=== PATIENT | male | born 1930 | race Caucasian/White ===

== ENCOUNTER → 2016-08-28 | Outpatient (CLI) | payer OTHER ==
[~2016-08-28] MED LIST: ACET300T2 PO; ASPI-435 PO; AVD5 PO; CLOP1TAB15 PO; CRG625 PO; DOXY100C2 PO; FLAX100025 PO; LPT/20 PO; LSN5 PO; LSX20 PO; MBC75 PO; MELO15TA4 PO; METR0.7536 TOP; METR1GEL3 TOP; MULT-506 PO; MULT-845 PO; NAPR500T3 PO; NITR0.1S PO; NITR0.4D6 SL; OMEG120013 PO; OPTIRAY 320 IV PRN; POLY335015 PO; POLY335019 PO; ROPI1TAB PO; RPF/8 PO; SIMV20TA2 PO
[2016-08-28 13:26] LABS: BLOOD UREA NITROGEN 13 mg/dl (7-18); BUN/CREATININE RATIO 15.3 (10-20); CREATININE 0.86 mg/dl (0.60-1.40)
--- NOTE | 2016-08-28 14:17 | DIAGNOSTIC IMAGING REPORT ---
ABDOMEN AND PELVIS CT EXAMINATION PRE AND POST INTRAVENOUS CONTRAST CT DOSE: 2885.33 mGycm HISTORY: Hematuria R31.0 Gross hematuria NPR PER JULIUS @ [facility] - REF#[id number] X0 TECHNIQUE: Multiaxial CT images of the abdomen and pelvis were performed pre and post intravenous contrast enhancement. COMPARISON STUDY: 12/21/2013 FINDINGS: Lung bases are clear. Liver spleen and pancreas are unremarkable. No evidence for abnormal renal calcifications. Kidneys enhance uniformly. There are no space-occupying lesions. Upper collecting systems are unremarkable. Ureters normal in course and caliber. There are findings of chronic sigmoid and descending colonic diverticulosis. 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 There is mild wall thickening of the base of the bladder. This is similar to that noted previously. There there are several prosthetic calcifications. There is no significant abdominal pelvic or inguinal adenopathy. IMPRESSION: 1. Normal upper urinary tracts. 2. Bladder diverticulum unchanged in the prior study. 3. Mild wall thickening base of the bladder similar to the prior study with cystoscopy recommended if that has not been performed. 4. Remainder the study remains unremarkable. 5. Chronic sigmoid diverticulosis. Electronically signed by: Ferdinand Hobson M.D. 08/28/2016 2:16 PM Dictated Date/Time: 08/28/2016 2:09 PM
== END ==
LOC: C.CTS 12:19
PROVIDERS: ATTEND Nurse Practitioner Family
DX: R31.0 Gross hematuria (principal)

== ENCOUNTER 2016-09-14 23:42 | Emergency (ER) | payer OTHER ==
[~2016-09-14] VITALS: Ht 177.8 cm; Wt 89.0 kg
[~2016-09-14 23:42] MED LIST changes: -LPT/20 PO; -MELO15TA4 PO; -METR0.7536 TOP; -MULT-845 PO; -NAPR500T3 PO; -NITR0.1S PO; -OPTIRAY 320 IV PRN; -POLY335019 PO
[2016-09-14 23:53] VITALS: TEMP 36.5; Ht 177.8 cm; Wt 89.0 kg
--- NOTE | 2016-09-15 00:27 | EMERGENCY ROOM VISIT NOTE ---
History Report prepared by Robyn: Gunner Feldman Under the Supervision of: Dr. Sanket Edmondson D.O. First contact with patient: 00:12 Chief Complaint: URINARY SYMPTOMS Stated Complaint: BLOOD IN URINE History of Present Illness The patient is an 85 year old male who presents to the Emergency Room with complaints of urinary retention and hematuria that began on the of this month, three days prior to arrival. The patient was diagnosed with urinary retention and bladder infection last week and hat a catheter placed. His catheter was removed on the and he has been having difficulties since. He has been able to urinate this evening, but has mainly passed blood and blood clots. The patient commonly follows with Dr. Markham of urology, but recently visited with Dr. Tee due to Dr. Markham's absence. He was in the ER on the , when the catheter was removed, and had a CT, urine analysis, and blood work performed. Source of History: patient, family Onset: Three days [employer] Position: other (Genitourinary) Quality: other (Urinary Retention) Associated Symptoms: + urinary symptoms Note: Positive hematuria Review of Systems See HPI for pertinent positives and negatives. A total of ten systems were reviewed and were otherwise negative. Past Medical & Surgical Medical Problems: (1) Bladder infection (2) Disc herniation Family History Family history omitted secondary to age. Social History Smoking Status: Never Smoker Alcohol Use: none Drug Use: none Marital Status: Housing Status: lives with family Occupation Status: retired Current/Historical Medications Scheduled Aspirin (Aspirin 81), 81 MG PO DAILY Atorvastatin (Atorvastatin Calcium), 20 MG PO DAILY Carvedilol (Carvedilol), 6.25 MG PO BID Doxycycline Hyclate (Vibramycin), 100 MG PO BID Dutasteride (Avodart), 1 CAP PO DAILY Flaxseed (Linseed) (Flax Seed Oil), 1,200 MG PO DAILY Furosemide (Furosemide), 20 MG PO DAILY Lisinopril (Lisinopril), 5 MG PO DAILY Meloxicam (Meloxicam), 15 MG PO DAILY Multiple Vitamins W/ Minerals (Centrum Silver Adult 50+), 1 TAB PO DAILY [place]-3 Fatty Acids (Fish Oil), 1 CAP PO DAILY Polyethylene Glycol 3350 (Miralax), 17 GM PO DAILY Ropinirole (Requip), 1 MG PO HS Silodosin (Rapaflo), 1 CAP PO DAILY Scheduled PRN Metronidazole (Topical) (Metronidazole), 1 APPLN TOP UD PRN for ROSACIA Naproxen (Naproxen), 500 MG PO BID PRN for Pain Nitroglycerin (Nitroglycerin Lingual), 1 DOSE PO UD PRN for Chest Pain Allergies Coded Allergies: Sulfa Antibiotics (Verified Allergy, Unknown, rash, 09/15/16) Physical Exam Vital Signs Date Time Temp Pulse Resp B/P (MAP) Pulse Ox O2 Delivery O2 Flow Rate FiO2 09/15/16 01:25 57 18 117/58 97 Room Air 09/14/16 23:53 36.5 61 18 107/58 94 Room Air Physical Exam GENERAL: Awake, alert, well-appearing, in no distress HENT: Normocephalic, atraumatic. Oropharynx unremarkable. EYES: Normal conjunctiva. Sclera non-icteric. NECK: Supple. No nuchal rigidity. FROM. No JVD. RESPIRATORY: Clear to auscultation. CARDIAC: Regular rate, normal rhythm. Extremities warm and well perfused. Pulses equal. ABDOMEN: Soft, non-distended. No tenderness to palpation. No rebound or guarding. No masses. RECTAL: Deferred. MUSCULOSKELETAL: Chest examination reveals no tenderness. The back is symmetrical on inspection without obvious abnormality. There is no CVA tenderness to palpation. No joint edema. LOWER EXTREMITIES: Calves are equal size bilaterally and non-tender. No edema. No discoloration. NEURO: Normal sensorium. No sensory or motor deficits noted. SKIN: No rash or jaundice noted. Medical Decision & Procedures Laboratory Results Test 09/15/16 00:32 Urine Color RED Urine Appearance TURBID (CLEAR) Urine pH (4.5-7.5) Urine Specific [place] 1.021 (1.000-1.030) Urine Protein POS (NEG) Urine Glucose (UA) (NEG) Urine Ketones (NEG) Urine Occult Blood (NEG) Urine Nitrite (NEG) Urine Bilirubin (NEG) Urine Urobilinogen (NEG) Urine Leukocyte Esterase (NEG) Urine RBC >30 /hpf (0-4) Urine WBC >30 /hpf (0-5) Urine Epithelial Cells 5-10 /lpf (0-5) Urine Bacteria NEG (NEG) Laboratory results reviewed by ok ED Course 0013: The patient was evaluated in room C6. A complete history and physical exam was performed. 0103: I checked on the patient at this time. His bladder irrigation is looking good. 0146: I reevaluated the patient at this time. Continuous bladder irrigation was performed. The patient had a pink tinged urine after irrigation. He is much improved. The patient will be discharged home. Medical Decision Blood pressure screening: Patient was found to have normal blood pressure on screening and does not require follow-up. Medication Reconciliation: I attest that I have personally reviewed the patient' s current medication list. Differential diagnosis include: Urinary retention, hematuria, UTI. Resting in no distress much improved after CBI. I discussed evaluation with the patient and family at bedside. Needs to continue follow-up with urology as scheduled Impression Primary Impression: Hematuria Scribe Attestation The scribe's documentation has been prepared under my direction and personally reviewed by me in its entirety. I confirm that the note above accurately reflects all work, treatment, procedures, and medical decision making performed by me. Departure Information Dispostion Home / Self-Care Referrals Stephen Gallegos DO (PCP) Patient Instructions ED Hematuria, My [facility]
[2016-09-15] MEDS ORDERED: POLY335019 PO (01:07)
[2016-09-15 01:23] LABS: MANUAL MICROSCOPIC REQUIRED? YES; REVIEW REQ? NO; SULFASALICYLIC ACID POS (NEG); URINE APPEARANCE TURBID (CLEAR); URINE COLOR RED; URINE SPECIFIC GRAVITY 1.021 (1.000-1.030)
[2016-09-15] MEDS ORDERED: LPT/20 PO (01:27)
[2016-09-15] MEDS ORDERED: CRG625 PO (01:28)
[2016-09-15 01:29] LABS: URINE BACTERIA NEG (NEG); URINE RBC >30 /hpf (0-4); URINE WBC >30 /hpf (0-5)
[2016-09-15] MEDS ORDERED: MELO15TA4 PO (01:30)
[2016-09-15] MEDS ORDERED: NAPR500T3 PO (01:30)
[2016-09-15] MEDS ORDERED: NITR0.1S PO (01:33)
[2016-09-15] MEDS ORDERED: MULT-845 PO (01:33)
[2016-09-15] MEDS ORDERED: METR0.7536 TOP (01:35)
[2016-09-15 02:19] VITALS: BP 112/60; PULSE 74; O2SAT 98
== END 2016-09-15 02:18 | disposition home or self-care (01) ==
LOC: C.EDB 23:44 → C.EDC 09-15 02:18
DX: R31.9 Hematuria, unspecified (principal); Z87.440 Personal history of urinary (tract) infections; Z79.82 Long term (current) use of aspirin; Z79.899 Other long term (current) drug therapy; Z88.2 Allergy status to sulfonamides

== ENCOUNTER → 2016-09-19 | Outpatient (CLI) | payer OTHER ==
[~2016-09-19] MED LIST changes: -ACET300T2 PO; -CLOP1TAB15 PO; +LPT/20 PO; -MBC75 PO; +MELO15TA4 PO; +METR0.7536 TOP; -METR1GEL3 TOP; -MULT-506 PO; +MULT-845 PO; +NAPR500T3 PO; +NITR0.1S PO; -NITR0.4D6 SL; -POLY335015 PO; +POLY335019 PO; -SIMV20TA2 PO
== END | disposition home or self-care (01) ==
LOC: C.LAB 16:41
PROVIDERS: ATTEND Urology
DX: N39.0 Urinary tract infection, site not specified (principal); R33.9 Retention of urine, unspecified

== ENCOUNTER → 2016-09-27 | Outpatient (CLI) | payer OTHER | END | disposition home or self-care (01) | LOC: C.LABSPEC 16:47 | PROVIDERS: ATTEND Urology | DX: N40.1 Benign prostatic hyperplasia with lower urinary tract symptoms (principal); N39.0 Urinary tract infection, site not specified; R33.9 Retention of urine, unspecified ==

== ENCOUNTER → 2016-10-17 | Outpatient (CLI) | payer OTHER ==
[~2016-10-17] MED LIST changes: -NITR0.1S PO; +NITR0.4S76 PO
== END | disposition home or self-care (01) ==
LOC: C.LABSPEC 17:13
PROVIDERS: ATTEND Urology
DX: N39.0 Urinary tract infection, site not specified (principal)

== ENCOUNTER → 2016-12-18 | Outpatient (CLI) | payer OTHER | END | disposition home or self-care (01) | LOC: C.LABSPEC 16:57 | PROVIDERS: ATTEND Urology | DX: R35.1 Nocturia (principal); R33.9 Retention of urine, unspecified; R30.0 Dysuria; N39.0 Urinary tract infection, site not specified ==